=== PATIENT | female | born 1975 | race Native Hawaiian/Other Pacific Islander ===

== ENCOUNTER → 2017-04-05 | Outpatient (CLI) | payer BC ==
--- NOTE | 2017-04-09 07:49 | MM ---
Reason for exam: screening (asymptomatic). Last mammogram was performed 2 years and 2 months ago. History: Took other hormone for 6 months. Physical Findings: A clinical breast exam by your physician is recommended on an annual basis and results should be correlated with mammographic findings. MG 3D Screening Mammo W/Cad Bilateral CC and MLO view(s) were taken. Prior study comparison: January 31, 2015, bilateral MG screening mammo w CAD. March 04, 2013, bilateral digital screening mammo w/CAD. There are scattered fibroglandular densities. No significant changes when compared with prior studies. ASSESSMENT: Negative, BI-RAD 1 RECOMMENDATION: Routine screening mammogram of both breasts in 1 year.
== END | disposition home or self-care (01) ==
LOC: RADMAMWWP 14:18
PROVIDERS: ATTEND Obstetrics & Gynecology
DX: Z12.31 Encounter for screening mammogram for malignant neoplasm of breast (principal)
CPT/HCPCS: 77063; G0202

== ENCOUNTER → 2018-06-19 | Outpatient (CLI) | payer BC ==
--- NOTE | 2018-06-19 15:34 | US ---
EXAMINATION TYPE: US thyroid st tissue head/neck DATE OF EXAM: 06/19/2018 COMPARISON: NONE CLINICAL HISTORY: E04.2 Nontoxic multinodular goiter. GLAND SIZE: Right Lobe: 4.4 x 1.1 x 1.4 cm Overall Parenchyma: homogenous Left Lobe: 4.7 x 1.3 x 1.4 cm Overall Parenchyma: homogeneous Isthmus Thickness: 0.2 cm NODULES RIGHT: # of nodules measured on right: 1 1. 0.5 X 0.1 x 0.2 cm mixed nodule at the upper pole with well-defined margins; . This nodule is w ider than tall and shows intranodular vascularity. Prior size: no prior here LEFT: # of nodules measured on left: 1 1. 0.5 X 0.4 x 0.5 cm mixed nodule at the upper pole with poorly defined margins; . This nodule is wider than tall and shows intranodular vascularity. Prior size: no prior here ISTHMUS: # of nodules measured in the isthmus: 0 Bilateral neck scanned, no evidence of lymphadenopathy. IMPRESSION: Subcentimeter thyroid nodules
== END | disposition home or self-care (01) ==
LOC: RADUSWWP 15:02
PROVIDERS: ATTEND Family Medicine
DX: E04.2 Nontoxic multinodular goiter (principal)
CPT/HCPCS: 76536

== ENCOUNTER → 2019-05-08 | Outpatient (CLI) | payer BC ==
--- NOTE | 2019-05-08 14:12 | MM ---
Reason for exam: screening (asymptomatic). Last mammogram was performed 2 years and 1 month ago. History: Took other hormone for 6 months. Physical Findings: A clinical breast exam by your physician is recommended on an annual basis and results should be correlated with mammographic findings. MG 3D Screening Mammo W/Cad Bilateral CC and MLO view(s) were taken. Prior study comparison: April 05, 2017, bilateral MG 3d screening mammo w/cad. January 31, 2015, bilateral MG screening mammo w CAD. The breast tissue is heterogeneously dense. This may lower the sensitivity of mammography. No significant changes when compared with prior studies. ASSESSMENT: Benign, BI-RAD 2 RECOMMENDATION: Routine screening mammogram of both breasts in 1 year.
== END ==
LOC: RADMAMWWP 07:18
PROVIDERS: ATTEND Obstetrics & Gynecology
DX: Z12.31 Encounter for screening mammogram for malignant neoplasm of breast (principal)
CPT/HCPCS: 77063; 77067

== ENCOUNTER → 2020-11-25 | Outpatient (CLI) | payer BC ==
--- NOTE | 2020-11-29 08:57 | MM ---
Reason for exam: screening (asymptomatic). Last mammogram was performed 1 year and 7 months ago. History: Took other hormone for 6 months. Physical Findings: A clinical breast exam by your physician is recommended on an annual basis and results should be correlated with mammographic findings. MG Screening Mammo w CAD Bilateral CC and MLO view(s) were taken. Prior study comparison: May 08, 2019, bilateral MG 3d screening mammo w/cad. April 05, 2017, bilateral MG 3d screening mammo w/cad. There are scattered fibroglandular densities. ASSESSMENT: Negative, BI-RAD 1 RECOMMENDATION: Routine screening mammogram of both breasts in 1 year.
== END | disposition home or self-care (01) ==
LOC: RADMAMWWP 08:02
PROVIDERS: ATTEND Obstetrics & Gynecology
DX: Z12.31 Encounter for screening mammogram for malignant neoplasm of breast (principal); Z79.890 Hormone replacement therapy
CPT/HCPCS: 77067

== ENCOUNTER → 2021-02-02 | Outpatient (CLI) | payer BC | END | disposition home or self-care (01) | LOC: LABWHC1 15:35 | PROVIDERS: ATTEND Family Medicine | DX: U07.1 COVID-19 (principal) | CPT/HCPCS: 86769; 36415; C9803 ==

== ENCOUNTER → 2021-12-14 | Outpatient (CLI) | payer BC ==
--- NOTE | 2021-12-15 10:57 | MM ---
Reason for Exam: Screening (asymptomatic). Last screening mammogram was performed 12 month(s) ago. Patient History: Menarche at age 13. First Full-Term at age 28. Last menstrual period: 10/14/2021 Risk Values: Dia 5 year model risk: 0.9%. NCI Lifetime model risk: 10.5%. Prior Study Comparison: 04/05/2017 Bilateral Screening Mammogram, [facility]. 05/08/2019 Bilateral Screening Mammogram, [facility]. 11/25/2020 Bilateral Screening Mammogram, [facility]. Tissue Density: There are scattered fibroglandular densities. Findings: Analyzed By CAD. No significant interval change is evident No suspicious groups of microcalcifications, spiculated or lobular masses, architectural distortion or other secondary signs of malignancy are mammographically apparent. Overall Assessment: Benign, BI-RAD 2 Management: Screening Mammogram of both breasts in 1 year. A negative mammogram report should not preclude additional follow up of suspicious palpable abnormalities. Patient should continue monthly self breast exam. A clinical breast exam by your physician is recommended on an annual basis and results should be correlated with mammographic findings. Electronically signed and approved by: Alex Alonso D.O. Radiologis
== END | disposition home or self-care (01) ==
LOC: RADMAMWWP 09:22
PROVIDERS: ATTEND Obstetrics & Gynecology
DX: Z12.31 Encounter for screening mammogram for malignant neoplasm of breast (principal)
CPT/HCPCS: 77067

== ENCOUNTER → 2022-12-17 | Outpatient (CLI) | payer BC ==
--- NOTE | 2022-12-17 08:21 | MM ---
Reason for Exam: Screening (asymptomatic). Last screening mammogram was performed 12 month(s) ago. Patient History: Menarche at age 13. First Full-Term at age 28. Patient has history of breast feeding. Last menstrual period: 11/21/2022 Risk Values: Dia 5 year model risk: 1.0%. NCI Lifetime model risk: 10.3%. Prior Study Comparison: 05/08/2019 Bilateral Screening Mammogram, [facility]. 11/25/2020 Bilateral Screening Mammogram, [facility]. 12/14/2021 Bilateral MG screening mammo w CAD, [facility]. Tissue Density: The breast tissue is heterogeneously dense. This may lower the sensitivity of mammography. Findings: Analyzed By CAD. There is no suspicious group of microcalcifications or new suspicious mass in either breast. Overall Assessment: Negative, BI-RAD 1 Management: Screening Mammogram of both breasts in [address] [facility] will attempt to contact patient to return for supplemental views and ultrasound if indicated. Patient should continue monthly self-breast exams. A clinical breast exam by your physician is recommended on an annual basis. This exam should not preclude additional follow-up of suspicious palpable abnormalities. Note on Dia scores and lifetime risk: 1. A Dia score greater than 3% is considered moderate risk. If this is the case, consider specialist referral to assess eligibility for a risk reducing agent. 2. If overall lifetime risk for the development of breast cancer is 20% or higher, the patient may qualify for future screening with alternating mammogram and breast MRI. Electronically signed and approved by: Derik Bliss DO
== END | disposition home or self-care (01) ==
LOC: RADMAMWWP 06:58
PROVIDERS: ATTEND Obstetrics & Gynecology
DX: Z12.31 Encounter for screening mammogram for malignant neoplasm of breast (principal)
CPT/HCPCS: 77067

== ENCOUNTER → 2024-02-19 | Outpatient (CLI) | payer BC ==
--- NOTE | 2024-02-20 14:21 | MM ---
Reason for Exam: Screening (asymptomatic). Last mammogram was performed 1 year(s) and 3 month(s) ago. Patient History: Menarche at age 13. First Full-Term at age 28. Postmenopausal. Patient has history of breast feeding. Risk Values: Dia 5 year model risk: 1.0%. NCI Lifetime model risk: 10.2%. Prior Study Comparison: 11/25/2020 Bilateral Screening Mammogram, [facility]. 12/14/2021 Bilateral MG screening mammo w CAD, [facility]. 12/17/2022 Bilateral MG screening mammo w CAD, [facility]. Tissue Density: There are scattered areas of fibroglandular density. Findings: Analyzed By CAD. There is no suspicious group of microcalcifications or new suspicious mass in either breast. Overall Assessment: Negative, BI-RAD 1 Management: Screening Mammogram of both breasts in 1 year. . Patient should continue monthly self-breast exams. A clinical breast exam by your physician is recommended on an annual basis. This exam should not preclude additional follow-up of suspicious palpable abnormalities. Note on Dia scores and lifetime risk: 1. A Dia score greater than 3% is considered moderate risk. If this is the case, consider specialist referral to assess eligibility for a risk reducing agent. 2. If overall lifetime risk for the development of breast cancer is 20% or higher, the patient may qualify for future screening with alternating mammogram and breast MRI. [facility], , 02/20/2024 2:19 PM. Electronically signed and approved by: Alli Bazzi M.D. Radiologis
== END | disposition home or self-care (01) ==
LOC: RADMAMWWP 15:48
PROVIDERS: ATTEND Obstetrics & Gynecology
CPT/HCPCS: 77067

== ENCOUNTER → 2024-06-16 | Outpatient (CLI) | payer BC ==
[2024-06-16 10:31] VITALS: BP 117/80; PULSE 75; TEMP 97.8; BMI 28.1
--- NOTE | 2024-06-16 10:54 | P.BASOAP ---
Subjective Progress Note Date: 06/16/24 Principal diagnosis: Dysphagia 48-year-old female here for bariatric follow-up. Patient was started on Zepbound 4 to 5 months ago and has gone from 206 to 168. Patient has recently over the last month or so started developing intermittent episodes of dysphagia and vomiting. Some port related pain as well. Patient has not had a Lap-Band adjustment in quite some time. Was last seen here in the clinic 2 years ago. Mild GERD. Objective - Vital Signs Vital signs: Vital Signs Temp 97.8 F 06/16/24 10:29 Pulse 75 06/16/24 10:29 Resp BP 117/80 06/16/24 10:29 Pulse Ox FiO2 Intake & Output 06/15/24 06/16/24 06/16/24 18:59 06:59 18:59 Weight 76.657 kg - Exam Abdomen: Soft, nontender, nondistended Assessment/Plan (1) Morbid obesity Narrative/Plan: Options reviewed. Will proceed with emptying of the patient's band at this time both to see how she maintains her weight and also to help with the symptoms of dysphagia. Will check upper GI as well. Follow-up 1 month to review. Plan: Date: 06/16/24 Initial Weight: Initial BMI: Current Weight: 76.657 kg Current BMI: 28.1 Type of Surgery: Total Volume in Band: Previous Volume: Volume Removed: Volume Added: Band Size:
--- NOTE | 2024-06-16 11:51 | FL ---
EXAMINATION TYPE: FL barium swallow DATE OF EXAM: 06/16/2024 11:41 AM COMPARISON: 10/25/2009 CLINICAL INDICATION:Female, 48 years old with history of R13.10 DYSPHAIGA; PHH, TECHNIQUE: The procedure was explained and patient history elicited. All patient questions were ans wered prior to start of procedure. Multiple spot fluoroscopic images of the esophagus were obtained a fter the oral ingestion of effervescent crystals and liquid barium as the contrast agent. Fluoroscopic time:41 sec Fluoroscopic images:0 Radiographs taken: 133 DAP: 59.44 mGym2 FINDINGS: The esophagus demonstrates normal primary and secondary peristalsis. Tertiary contractions are seen w ith delayed emptying of the esophageal contents. Patient had some barium remaining in the distal esop hagus during small-volume swallows. During and large volume swallow this pushed through the contents of the esophagus and emptied esophagus. The esophageal mucosa is smooth without evidence of focal str icture, ulceration, or abnormal outpouching. No gastroesophageal reflux disease was identified. Praneeth jose lap band appears in appropriate position. IMPRESSION: Free flow of contrast through the gastroesophageal junction with gastric lap band however there is so me barium that remain in the distal esophagus and required additional large volume swallow to push th e remaining barium through the gastroesophageal junction. Findings compatible with esophageal dysmoti lity. [facility], , 06/16/2024 11:49 AM
== END ==
LOC: BARWHC3 10:02
PROVIDERS: ATTEND Surgery
DX: E66.01 Morbid (severe) obesity due to excess calories (principal); R13.10 Dysphagia, unspecified; Z68.28 Body mass index [BMI] 28.0-28.9, adult
CPT/HCPCS: 43999; 74220

== ENCOUNTER → 2024-07-28 | Outpatient (CLI) | payer BC ==
[2024-07-28 15:30] VITALS: BP 114/76; PULSE 78; RESP 16; TEMP 98; BMI 30.2
--- NOTE | 2024-07-28 15:57 | P.BASOAP ---
Subjective Progress Note Date: 07/28/24 Principal diagnosis: Morbid obesity Patient returns for recheck. When she was seen in May the patient was having dysphagia and vomiting with GERD. Her band was emptied. 4 cc was removed. Upper GI done that day showed no obstruction however the patient had evidence of esophageal dysmotility. Since then the patient has had resolution of the majority of her symptoms. She is still had a few episodes of vomiting and dysphagia with bread products. No GERD. Still with mild soreness at the port site. Patient was switched from Zepbound to Wegovy. She has gained 13 pounds in the last 6 weeks. Patient worried about the weight gain. Patient has had significant stress at home and did recently start exercising again. Objective - Vital Signs Vital signs: Vital Signs Temp 98 F 07/28/24 15:28 Pulse 78 07/28/24 15:28 Resp 16 07/28/24 15:28 BP 114/76 07/28/24 15:28 Pulse Ox FiO2 Intake & Output 07/27/24 07/28/24 07/28/24 18:59 06:59 18:59 Weight 82.554 kg - Exam Abdomen: Soft, nontender, nondistended Assessment/Plan (1) Morbid obesity Narrative/Plan: 48-year-old female with morbid obesity. Patient has done well after the band was emptied. She has gained some weight. Patient contemplating band removal, conversion to alternative bariatric procedure, or refilling of the band. Discussed with patient that I would advise gastric bypass for a revisional option and we discussed a referral to [facility] Dr. Ware if she would like to do so. She is agreeable at this time to try utilizing the band once again at a smaller volume. Follow-up 4 to 6 weeks. The patient's lap band port was palpated. The site was aseptically prepped. The Carmen needle was advanced into the port. A total of 1.5 ml of fluid was added for a total of 1.5 cc. Pressure was held and a sterile dressing was applied. Plan: Date: 07/28/24 Initial Weight: 130.635 kg Initial BMI: 47.9 Current Weight: 82.554 kg Current BMI: 30.2 Type of Surgery: Adjustable Gastric Banding Total Volume in Band: 0 Previous Volume: Volume Removed: Volume Added: Band Size:
== END ==
LOC: BARWHC3 15:23
PROVIDERS: ATTEND Surgery
DX: E66.01 Morbid (severe) obesity due to excess calories (principal); Z68.30 Body mass index [BMI] 30.0-30.9, adult
CPT/HCPCS: 43999

== ENCOUNTER → 2024-09-30 | Outpatient (CLI) | payer BC | END | disposition home or self-care (01) | LOC: LABWHC1 16:21 | DX: Z01.812 Encounter for preprocedural laboratory examination (principal) | CPT/HCPCS: 86850; 86900; 86901 ==

== ENCOUNTER → 2024-10-27 | Outpatient (CLI) | payer BC ==
[2024-10-27 14:54] VITALS: BP 115/73; PULSE 83; RESP 16; TEMP 98.2; BMI 32.3
--- NOTE | 2024-10-27 15:47 | P.BASOAP ---
Subjective Progress Note Date: 10/27/24 Principal diagnosis: Morbid obesity Patient returns after recent EGD. Patient's EGD was performed because of anticipated conversion to gastric bypass. Patient still has fluid in her band. Episodes of dysphagia occasionally. Objective - Vital Signs Vital signs: Vital Signs Temp 98.2 F 10/27/24 14:51 Pulse 83 10/27/24 14:51 Resp 16 10/27/24 14:51 BP 115/73 10/27/24 14:51 Pulse Ox FiO2 Intake & Output 10/26/24 10/27/24 10/27/24 18:59 06:59 18:59 Weight 87.997 kg - Exam Abdomen: Soft, nontender, nondistended Assessment/Plan (1) Morbid obesity Narrative/Plan: 49-year-old female with history of morbid obesity. Current BMI 32. Patient interested in band removal and conversion to gastric bypass. Will onto the patient's band in anticipation of upcoming surgical procedure. The patient's lap band port was palpated. The site was aseptically prepped. The Carmen needle was advanced into the port. A total of 2 ml of fluid was removed. Pressure was held and a sterile dressing was applied. Plan: Date: 10/27/24 Initial Weight: 130.635 kg Initial BMI: 47.9 Current Weight: 87.997 kg Current BMI: 32.3 Type of Surgery: Adjustable Gastric Banding Total Volume in Band: 1.5 Previous Volume: Volume Removed: Volume Added: Band Size:
== END ==
LOC: BARWHC3 14:38
PROVIDERS: ATTEND Surgery
DX: E66.01 Morbid (severe) obesity due to excess calories (principal); Z68.32 Body mass index [BMI] 32.0-32.9, adult
CPT/HCPCS: 43999